=== PATIENT | female | born 1960 | race Caucasian/White ===

== ENCOUNTER → 2016-09-29 | Outpatient (CLI) | payer BC ==
--- NOTE | 2016-10-02 08:41 | MM ---
Reason for exam: screening (asymptomatic). Last mammogram was performed 2 years and 2 months ago. History: Patient is postmenopausal and has history of endometrial cancer at age 37. Family history of breast cancer in grandmother at age 55. Took hormonal contraceptives for 4 years. Physical Findings: A clinical breast exam by your physician is recommended on an annual basis and results should be correlated with mammographic findings. MG 3D Screening Mammo W/Cad Bilateral CC and MLO view(s) were taken. Prior study comparison: July 20, 2014, right breast MG work up mamm w CAD RT. July 10, 2014, bilateral MG screening mammo w CAD. There are scattered fibroglandular densities. There is chronic nodularity in the left breast. No significant changes when compared with prior studies. ASSESSMENT: Benign, BI-RAD 2 RECOMMENDATION: Routine screening mammogram of both breasts in 1 year.
== END | disposition home or self-care (01) ==
LOC: RADMAMWWP 08:48
PROVIDERS: ATTEND Obstetrics & Gynecology
DX: Z12.31 Encounter for screening mammogram for malignant neoplasm of breast (principal)
CPT/HCPCS: 77063; G0202

== ENCOUNTER 2016-11-22 10:07 | Day surgery (SDC) | payer BC ==
--- NOTE | 2016-11-22 07:38 | P.GSHP ---
History of Present Illness H&P Date: 11/22/16 CHIEF COMPLAINT: Colon screen HISTORY OF PRESENT ILLNESS: The patient is a 56-year-old female who presents for colon screen. Lower endoscopy was offered for further evaluation and management. PAST MEDICAL HISTORY: Please see list. PAST SURGICAL HISTORY: Please see list. MEDICATIONS: Please see list. ALLERGIES: Please see list. SOCIAL HISTORY: No illicit drug use FAMILY HISTORY: No reports of Crohn disease or ulcerative colitis. REVIEW OF ORGAN SYSTEMS: CONSTITUTIONAL: No reports of fevers or chills. PHYSICAL EXAM: VITAL SIGNS: Stable GENERAL: Well-developed pleasant in no acute distress. HEENT: No scleral icterus. Extraocular movements grossly intact. Moist buccal mucosa. NECK: Supple without lymphadenopathy. CHEST: Unlabored respirations. Equal bilateral excursions. CARDIOVASCULAR: Regular rate and rhythm. Distal 2+ pulses. ABDOMEN: Soft, nontender, nondistended. MUSCULOSKELETAL: No clubbing, cyanosis, or edema. ASSESSMENT: 1. Colon screen. PLAN: 1. Recommend proceeding with a lower endoscopy
[2016-11-22 10:32] VITALS: TEMP 98
[2016-11-22] MEDS ORDERED: LACTATED RINGERS 1,000 ML IV ONE (10:40)
[2016-11-22] MEDS ORDERED: LIDOCAINE 1% 20 ML VIAL (10MG/ML) FOR IV START INTRADERMA ONE (10:40)
[2016-11-22] MEDS ORDERED: PROPOFOL 10 MG/ML 20 ML VIAL IV ONE (10:58)
[2016-11-22] MEDS ORDERED: MIDAZOLAM 2 MG/2 ML VIAL ONE (10:58)
--- NOTE | 2016-11-22 11:53 | P.PCN ---
Date of Procedure: 11/22/16 Preoperative Diagnosis: Postoperative Diagnosis: Procedure(s) Performed: Implants: Indications for Procedure: Operative Findings: Description of Procedure: PREOPERATIVE DIAGNOSIS: Colonoscopy screening, initial. Family history of colon polyps, father. POSTOPERATIVE DIAGNOSIS: Colonoscopy screening, initial. Family history of colon polyps, father. Diverticulosis, scattered. Perianal lesion. External hemorrhoids, grade 4. OPERATION: Colonoscopy to the ileocecal valve and appendiceal orifice. SURGEON: Velia Arredondo MD. ANESTHESIA: MAC. INDICATIONS: The patient is a 56-year-old female who presents for colonoscopy screening. Benefits and risks were described and informed consent was obtained. DESCRIPTION OF PROCEDURE: The patient had undergone Gatorade, MiraLAX and Dulcolax prep. She had been brought into the operating room and laid in the left lateral decubitus position. After adequate intravenous sedation, the rectum was examined with 2% lidocaine jelly. Hyperemia along the perianal region including thickened squamous tissue was found. External hemorrhoids were encountered. The rectal tone was within normal limits. No lesions were palpated in the rectal vault. An Olympus colonoscope was advanced until the ileocecal valve and appendiceal orifice were clearly viewed. The colon was moderately redundant including of the sigmoid colon where abdominal pressure was required. The patient was repositioned supine to advance the scope. The prep was excellent with clear visualization of the mucosal folds. The scope was removed with visualization of each mucosal fold. Scattered diverticulosis was encountered. No large colonic polyps were found. No evidence of focal colitis was found. Retroflexion of the scope demonstrated grade 1 internal hemorrhoids without active bleeding or inflammation. The colon was desufflated. The patient had tolerated the procedure well. Withdrawal time was over 6 minutes. FINDINGS: Internal hemorrhoids, grade 1. External prolapsed hemorrhoids, grade 4. No arteriovenous malformations. No large adenomatous polyps. No focal colitis. Fidelina-anal lesion with thickened squamous tissue. RECOMMENDATIONS: Lower endoscopy in 3 years (2019) for high family and personal risks. Plan - Discharge Summary New Discharge Prescriptions: No Action Ranitidine HCl [Zantac] 150 PO DAILY Cetirizine HCl [Zyrtec] 5 mg PO DAILY Pseudoephedrine [Sudafed] 30 mg PO Q6H Fluticasone Nasal [place] [Flonase Nasal [place]] 1 spray EA NOSTRIL DAILY Vitamin E (Dl,Tocopheryl Acet) [Vitamin E] 400 unit PO DAILY Vit D3/Folic Acid/B2/B6/B12 [Folgard Tablet] 1 each PO DAILY Biotin 5,000 mcg PO DAILY Discharge Medication List Biotin 5,000 mcg PO DAILY 11/22/16 [History] Cetirizine HCl [Zyrtec] 5 mg PO DAILY 11/22/16 [History] Fluticasone Nasal [place] [Flonase Nasal [place]] 1 spray EA NOSTRIL DAILY 11/22/16 [History] Pseudoephedrine [Sudafed] 30 mg PO Q6H 11/22/16 [History] Ranitidine HCl [Zantac] 150 PO DAILY 11/22/16 [History] Vit D3/Folic Acid/B2/B6/B12 [Folgard Tablet] 1 each PO DAILY 11/22/16 [History] Vitamin E (Dl,Tocopheryl Acet) [Vitamin E] 400 unit PO DAILY 11/22/16 [History] Follow up Appointment(s)/Referral(s): Velia Arredondo MD [STAFF PHYSICIAN] - 11/28/16 () Patient Instructions/Handouts: Hemorrhoids (GEN), Colorectal Polyps (DC) Activity/Diet/Wound Care/Special Instructions: Follow-up in the office. Colonoscopy in 3 years, 2019. Discharge Disposition: HOME SELF-CARE
[2016-11-22 12:56] VITALS: BP 138/90; PULSE 60; RESP 18
== END 2016-11-22 12:51 | disposition home or self-care (01) ==
LOC: ORWHC2ENDO 10:07
PROVIDERS: ATTEND Surgery Plastic and Reconstructive Surgery
DX: Z12.11 Encounter for screening for malignant neoplasm of colon (principal); K57.30 Diverticulosis of large intestine without perforation or abscess without bleeding; K64.3 Fourth degree hemorrhoids; K64.0 First degree hemorrhoids; K62.9 Disease of anus and rectum, unspecified; Z83.71 Family history of colonic polyps; K21.9 Gastro-esophageal reflux disease without esophagitis; Z79.51 Long term (current) use of inhaled steroids; Z79.899 Other long term (current) drug therapy; Z88.5 Allergy status to narcotic agent
CPT/HCPCS: J2250; J2704; G0105; 45378

== ENCOUNTER 2016-11-29 10:33 | Day surgery (SDC) | payer BC ==
[2016-11-28 11:40] VITALS: BMI 28.7
--- NOTE | 2016-11-29 10:10 | P.GSHP ---
History of Present Illness H&P Date: 11/29/16 CHIEF COMPLAINT: Symptomatic hemorrhoids and rectal bleeding HISTORY OF PRESENT ILLNESS: The patient is a 56-year-old female who presents with symptomatic hemorrhoids and rectal bleeding. She completed a lower endoscopy with findings of dysplasia along the perineum. She has personal history of squamous cell cancer. She now presents for definitive surgical intervention. PAST MEDICAL HISTORY: Please see list. PAST SURGICAL HISTORY: Please see list. MEDICATIONS: Please see list. ALLERGIES: Please see list. SOCIAL HISTORY: No illicit drug use FAMILY HISTORY: No reports of Crohn disease or ulcerative colitis. REVIEW OF ORGAN SYSTEMS: CONSTITUTIONAL: No reports of fevers or chills. PHYSICAL EXAM: VITAL SIGNS: Stable GENERAL: Well-developed pleasant in no acute distress. HEENT: No scleral icterus. Extraocular movements grossly intact. Moist buccal mucosa. NECK: Supple without lymphadenopathy. CHEST: Unlabored respirations. Equal bilateral excursions. CARDIOVASCULAR: Regular rate and rhythm. Distal 2+ pulses. ABDOMEN: Soft, nontender, nondistended. MUSCULOSKELETAL: No clubbing, cyanosis, or edema. RECTUM: Grade 3 external hemorrhoids with desquamation along the anal canal and perineum. ASSESSMENT: 1. Symptomatic hemorrhoids, grade 3. 2. Dysplastic changes along the perineum. 3. Personal history of squamous cell cancer PLAN: 1. Recommend proceeding hemorrhoidectomy including anal skin biopsy. Past Medical History Past Medical History: Cancer, GERD/Reflux Additional Past Medical History / Comment(s): HEMORRHOIDS History of Any Multi-Drug Resistant Organisms: None Reported Past Surgical History: Back Surgery, Section, Hysterectomy Additional Past Surgical History / Comment(s): SQUAMOUS CELL REMOVED FROM RT GROIN 2014. BAXK SX X 2-HAS TITANIUM CAGE TO LOWER BACK. COLONOSCOPY-11/22/16 Past Anesthesia/Blood Transfusion Reactions: Motion Sickness, Postoperative Nausea & Vomiting (PONV) Smoking Status: Never smoker - Past Family History Mother Family Medical History: No Reported History Medications and Allergies Home Medications Medication Instructions Recorded Confirmed Type Biotin 5,000 mcg PO DAILY 11/22/16 11/28/16 History Cetirizine HCl [Zyrtec] 5 mg PO DAILY 11/22/16 11/28/16 History Fluticasone Nasal [place] [Flonase 1 spray EA NOSTRIL DAILY 11/22/16 11/28/16 History Nasal [place]] Pseudoephedrine [Sudafed] 30 mg PO Q6H 11/22/16 11/28/16 History Ranitidine HCl [Zantac] 150 mg PO DAILY PRN 11/22/16 11/28/16 History Vit D3/Folic Acid/B2/B6/B12 1 each PO DAILY 11/22/16 11/28/16 History [Folgard Tablet] Vitamin E (Dl,Tocopheryl Acet) 400 unit PO DAILY 11/22/16 11/28/16 History [Vitamin E] Allergies Allergy/AdvReac Type Severity Reaction Status Date / Time morphine Allergy Itching Verified 11/28/16 11:31
[~2016-11-29 10:33] MED LIST: BUPIVACAINE LIPOSOME/PF 1.3% 20 ML, SODIUM CHLORIDE 0.9% 10 ML MISCELLANE ONE; DEXAMETHASONE SOD PHOSPHATE 10 MG/ML 1 ML VIAL IV ONE; LIDOCAINE 1% 20 ML VIAL (10MG/ML) FOR IV START INTRADERMA PRN; ONDANSETRON 4 MG/2 ML VIAL IVP ONE; Pre Op ABX Message 1 EACH MISC MISCELLANE ONE; SCOPOLAMINE 1.5MG/72HR PATCH TRANSDERM ONE; ceFAZolin 2 GM in SODIUM CHLORIDE 0.9% 100 ML IVPB ONE; fentaNYL (PF) 50 MCG/ML 2 ML AMP IV PRN; metroNIDAZOLE-NS PMX 500 MG in SALINE 100 100ML.BAG IVPB ONE
[2016-11-29] MEDS: LACTATED RINGERS 1,000 ML IV SCH ×2 (11:15→13:41)
[2016-11-29] MEDS ORDERED: NA PHOS,M-B/NA PHOS,DI-BA 133 ML ENEMA RECTAL ONE (11:18)
[2016-11-29 11:24] LABS: Basophils % (A) 1 %; CHCM 33.7; Eosinophils # (A) 0.2 k/uL (0-0.7); Eosinophils % (A) 3 %; HCT 42.5 % (34.0-46.0); HDW 2.57; HGB 14.5 gm/dL (11.4-16.0); Luc # (Auto) 0.09; Luc % (Auto) 2; Lymphocytes # (A) 2.2 k/uL (1.0-4.8); Lymphocytes % (A) 39 %; MCH 32.5 pg (25.0-35.0); MCV 95.5 fL (80.0-100.0); Mean Platelet Volume 7.4; Monocytes # (A) 0.3 k/uL (0-1.0); Monocytes % (A) 5 %; Neutrophils # (A) 2.9 k/uL (1.3-7.7); Neutrophils % (A) 51 %; RBC 4.45 m/uL (3.80-5.40); RDW 12.7 % (11.5-15.5); WBC 5.7 k/uL (3.8-10.6)
[2016-11-29] MEDS ORDERED: fentaNYL (PF) 50 MCG/ML 2 ML AMP ONE (11:55)
[2016-11-29] MEDS ORDERED: LIDOCAINE 1% INJ 10MG/ML (20 ML MDV) ONE (11:55)
[2016-11-29] MEDS ORDERED: PROPOFOL 10 MG/ML 20 ML VIAL IV ONE (11:55)
[2016-11-29] MEDS ORDERED: MIDAZOLAM 2 MG/2 ML VIAL ONE (11:55)
[2016-11-29] MEDS ORDERED: SUCCINYLCHOLINE CHLORIDE 100 MG/5 ML SYR IV ONE (11:55)
[2016-11-29 12:44] VITALS: TEMP 96.8
[2016-11-29] MEDS ORDERED: HYDROmorphone 1 MG/ML 1 ML SYRINGE IVP ONE ×2 (13:17→13:24)
[2016-11-29 13:19] VITALS: RESP 16
[2016-11-29] MEDS ORDERED: HYDROcodone/APAP 5-325MG 1 EACH TAB PO ONE (14:10)
[2016-11-29 14:58] VITALS: BP 150/92; PULSE 67
--- NOTE | 2016-11-30 08:03 | P.OP ---
Date of Procedure: 11/29/16 Preoperative Diagnosis: Postoperative Diagnosis: Procedure(s) Performed: Implants: Indications for Procedure: Operative Findings: Description of Procedure: SURGEON: VELIA ARREDONDO MD RAIL SPLITTER: NONE. PREOPERATIVE DIAGNOSES: 1. History of complicated internal hemorrhoids, grade 3. 2. History of complicated external hemorrhoids, grade 3. 3. Personal history of squamous cell cancer. 4. Perianal lesion. 5. History of rectal bleeding. POSTOPERATIVE DIAGNOSES: 1. History of complicated internal hemorrhoids, grade 4. 2. History of complicated external hemorrhoids, grade 4. 3. Personal history of squamous cell cancer. 4. Perianal lesion. 5. History of rectal bleeding. OPERATION: 1. Excision of internal and external hemorrhoids x 3 using LigaSure. 2. Skin biopsy perianal lesion ANESTHESIA: MAC with Exparel mixture. ESTIMATED BLOOD LOSS: 1 mL. PATHOLOGY: 1. Internal, external hemorrhoidal complex x 3. 2. Perianal lesion skin lesion at 11:00. FINDINGS: 1. Grade 4 internal/external hemorrhoidal cushion 3 excised. 2. Severe inflammation along the perianal region highly suspicious for squamous cell dysplasia/cancer. 3. No anal stricture upon excision of hemorrhoidal complexes. INDICATIONS: The patient is a 56-year-old female who presents with rectal bleeding including complicated internal/external hemorrhoids. She completed a colonoscopy with findings of perianal lesion highly suspicious for dysplastic changes. She has a personal history of squamous cell cancer. Surgical intervention was described for hemorrhoidectomy including biopsy of the perianal lesion. Benefits and risks of the procedure, including bleeding, infection, incontinence, recurrent pain and recurrence of the hemorrhoids were discussed in detail. Informed consent was obtained. DESCRIPTION: Patient was brought to the operating room. The patient was prepared and draped in the standard sterile fashion. After general induction, she was then repositioned the prone jackknife position. Next, the perineum and buttocks was spread apart using Mastisol. The perineum was then prepped and draped in standard sterile fashion using Betadine. Preoperative medication was confirmed. Prior to incision, a timeout protocol was confirmed with surgical team. Initially 2 fingers was easily inserted for dilation of the anus. A perineal block using Exparel was placed. Grade 4 hemorrhoids along all 3 quadrants were identified. Next, using a Alfie-Ming anoscope, each hemorrhoidal cushion was addressed using a hand-held LigaSure after elevating each hemorrhoidal complex using forceps. Next, at the 11 o'clock position a #15 blade was used to excise a skin biopsy of 1 cm x 0.3 cm involving the area of dysplasia as well as normal skin tissue. The excision was cauterized and oversewn using 3-0 Vicryl. At the end of the case, 2 fingers were readily passed through the anus without any features of the anal stricture or stenosis. The perineum was cleansed. Several 4 x 4 gauze with mesh underwear was placed. At the end of the procedure, needle, sponge, and counts had been verified correct by the surgical services director. The patient then had tolerated the procedure well. Intraoperative findings including postoperative care instructions were discussed. Plan - Discharge Summary New Discharge Prescriptions: New Docusate [Colace] 100 mg PO DAILY #10 capsule Hydrocodone/Acetaminophen [[place] 5-325] 1 each PO Q6HR PRN #20 tab PRN Reason: Pain metroNIDAZOLE [Flagyl] 500 mg PO BID #10 tab No Action Ranitidine HCl [Zantac] 150 mg PO DAILY PRN PRN Reason: GERD Cetirizine HCl [Zyrtec] 5 mg PO DAILY Pseudoephedrine [Sudafed] 30 mg PO Q6H Fluticasone Nasal [place] [Flonase Nasal [place]] 1 spray EA NOSTRIL DAILY Vitamin E (Dl,Tocopheryl Acet) [Vitamin E] 400 unit PO DAILY Biotin 5,000 mcg PO DAILY Discharge Medication List Biotin 5,000 mcg PO DAILY 11/22/16 [History] Cetirizine HCl [Zyrtec] 5 mg PO DAILY 11/22/16 [History] Fluticasone Nasal [place] [Flonase Nasal [place]] 1 spray EA NOSTRIL DAILY 11/22/16 [History] Pseudoephedrine [Sudafed] 30 mg PO Q6H 11/22/16 [History] Ranitidine HCl [Zantac] 150 mg PO DAILY PRN 11/22/16 [History] Vitamin E (Dl,Tocopheryl Acet) [Vitamin E] 400 unit PO DAILY 11/22/16 [History] Docusate [Colace] 100 mg PO DAILY #10 capsule 11/29/16 [Rx] Hydrocodone/Acetaminophen [[place] 5-325] 1 each PO Q6HR PRN #20 tab 11/29/16 [Rx] metroNIDAZOLE [Flagyl] 500 mg PO BID #10 tab 11/29/16 [Rx] Follow up Appointment(s)/Referral(s): Velia Arredondo MD [STAFF PHYSICIAN] - 12/12/16 1:30 pm Patient Instructions/Handouts: *Surgery [facility] - (Anesthesia) Discharge Instructions Outpatient Surgery, Hydrocodone/Acetaminophen (By mouth), Metronidazole (By mouth), Sitz Bath (GEN), Hemorrhoidectomy (GEN) Activity/Diet/Wound Care/Special Instructions: Please do sitz bath twice daily and after bowel movement. Stop stool softener should you develop diarrhea. It is okay to see blood after your first bowel movement. Keep the area clean and dry. May wear a pad to protect your clothing. Discharge Disposition: HOME SELF-CARE
== END 2016-11-29 15:11 | disposition home or self-care (01) ==
LOC: OR 10:33
PROVIDERS: ATTEND Surgery Plastic and Reconstructive Surgery
DX: K64.2 Third degree hemorrhoids (principal); D04.5 Carcinoma in situ of skin of trunk; Z87.19 Personal history of other diseases of the digestive system; Z85.9 Personal history of malignant neoplasm, unspecified; K21.9 Gastro-esophageal reflux disease without esophagitis; Z79.899 Other long term (current) drug therapy; Z88.5 Allergy status to narcotic agent
CPT/HCPCS: 88304; 88305; 85025; 46260; 46922; J2250; J1100; J0690; J2405; J2001; J3010; J1170; J0330; C9290; J2704; 88341; 88342

== ENCOUNTER → 2016-12-26 | Outpatient (CLI) | payer BC ==
[2016-12-26 18:35] LABS: Basophils # (A) 0.1 k/uL (0-0.2); Basophils % (A) 1 %; CH 32.9; CHCM 33.6; Eosinophils # (A) 0.2 k/uL (0-0.7); Eosinophils % (A) 4 %; HCT 40.6 % (34.0-46.0); HDW 2.49; HGB 13.2 gm/dL (11.4-16.0); Luc # (Auto) 0.12; Luc % (Auto) 2; Lymphocytes # (A) 3.2 k/uL (1.0-4.8); Lymphocytes % (A) 48 %; MCH 32.1 pg (25.0-35.0); MCHC 32.6 g/dL (31.0-37.0); MCV 98.3 fL (80.0-100.0); Mean Platelet Volume 7.6; Monocytes # (A) 0.4 k/uL (0-1.0); Monocytes % (A) 5 %; Neutrophils # (A) 2.8 k/uL (1.3-7.7); Neutrophils % (A) 41 %; RBC 4.13 m/uL (3.80-5.40); RDW 13.1 % (11.5-15.5); WBC 6.7 k/uL (3.8-10.6); WBC (Perox) 6.95
== END | disposition home or self-care (01) ==
LOC: RADXRMAIN 17:43
PROVIDERS: ATTEND Surgery Plastic and Reconstructive Surgery
DX: T81.4XXA Infection following a procedure, initial encounter (principal)
CPT/HCPCS: 36415; 85025

== ENCOUNTER → 2018-04-13 | Outpatient (CLI) | payer BC ==
--- NOTE | 2018-04-17 14:10 | PE ---
EXAMINATION TYPE: PET CT fusion skull to thigh DATE OF EXAM: 04/13/2018 COMPARISON: None available at this institution. HISTORY: Rectal carcinoma. Subsequent treatment strategy. Patient describes surgical resection in 201 7 without chemotherapy or radiation. TECHNIQUE: Following the intravenous administration of 12.86 mCi of F-18 FDG, whole body images are performed from the skull base to the midthigh. Images are reviewed on the computer in the coronal, a xial, and sagittal planes. Reconstructed rotating images are created on independent workstation and reviewed on the computer. A localization and attenuation correction CT is performed in conjunction with the PET scan. SCAN: Initial at this institution FINDINGS: Background mediastinal uptake: 1.2 Background abdominal uptake: 2.37 SKULL BASE AND NECK: No suspicious hypermetabolic uptake. CHEST, MEDIASTINUM, AND HILAR REGION: No suspicious hypermetabolic uptake. ABDOMEN AND PELVIS: There is uptake within the rectum extending to the anal verge with a maximum SUV of 3.05, mildly above abdominal background. There is a hypoattenuated hepatic lesion with no hypermetabolic uptake in the left hepatic lobe. OSSEOUS STRUCTURES: No suspicious abnormal metabolic uptake. OTHER CT: There is mild circumferential mucosal thickening within the right maxillary sinus. Remainin g paranasal sinuses and mastoid air vessels appear well aerated. Mild degenerative changes of the spi ne are seen. Vague geographic groundglass opacities throughout the lungs are present with minimal bibasilar depend ent atelectasis. No suspicious pulmonary mass is seen. The heart is mildly enlarged. As above there is a hypoattenuated hepatic lesion without hypermetabolic uptake measuring 1.3 cm and left hepatic lobe on series 3 image 119. However this does not measure Hounsfield unit of a simple cy st on all images. This could relate to volume averaging. Ultrasound could confirm increased through t ransmission. Small splenule is noted adjacent to the [place] spleen. Unenhanced kidneys, pancreas, and adrenal glan ds are unremarkable. Gallbladder demonstrates no evidence of cholelithiasis. Small fat filled umbilic al hernia is noted. No dilated large or small bowel is seen. Moderate amount retained colonic stool i s present. No greater than 1 cm short axis lymph nodes are seen within the abdomen or pelvis. Postsur gical changes are present of the lumbosacral spine. Rectal wall thickening at the rectosigmoid junction is nearly circumferential measuring up to 6 mm in greatest thickness. There is minimal amount of subtle fat stranding in the mesorectal fat. A solitar y 5 mm lymph node within the right mesorectal fat seen on series 3 image 208 is suspicious given its location however remains nonenlarged and is not hypermetabolic. Few scattered nonenlarged internal an d external iliac chain lymph nodes are seen. IMPRESSION: 1. There is mild hypermetabolic uptake within the rectum extending to the anal verge with circumferen tial mild mucosal thickening. An adjacent nonenlarged mesorectal lymph node is present without hyperm etabolic uptake, possibly treated metastasis. No other suspicious findings for metastasis are seen wi thin the chest, abdomen or pelvis. 2. Solitary left hepatic lobe lesion does not demonstrate FDG avidity, however this does not measure Hounsfield units of a simple cyst throughout and comparison with any prior outside imaging to determi ne stability would be recommended. If no prior imaging is available ultrasound could asses for increa sed through transmission of a cyst.
== END | disposition home or self-care (01) ==
LOC: RADPETMAIN 08:39
PROVIDERS: ATTEND Internal Medicine Hematology & Oncology
DX: K76.9 Liver disease, unspecified (principal); C20 Malignant neoplasm of rectum; C21.1 Malignant neoplasm of anal canal
CPT/HCPCS: 78815; A9552

== ENCOUNTER → 2018-07-22 | Outpatient (CLI) | payer BC ==
--- NOTE | 2018-07-23 13:43 | MM ---
Reason for exam: screening (asymptomatic). Last mammogram was performed 1 year and 10 months ago. History: Patient is postmenopausal and has history of endometrial cancer at age 37. Family history of breast cancer in grandmother at age 55. Took hormonal contraceptives for 4 years. Physical Findings: A clinical breast exam by your physician is recommended on an annual basis and results should be correlated with mammographic findings. MG 3D Screening Mammo W/Cad Bilateral CC and MLO view(s) were taken. Prior study comparison: September 29, 2016, bilateral MG 3d screening mammo w/cad. July 20, 2014, right breast MG work up mamm w CAD RT. The breast tissue is heterogeneously dense. This may lower the sensitivity of mammography. Finding: There is a stable 7 mm mass in the upper outer quadrant of the left breast. There are benign appearing calcifications. ASSESSMENT: Benign, BI-RAD 2 RECOMMENDATION: Routine screening mammogram of both breasts in 1 year.
== END | disposition home or self-care (01) ==
LOC: RADMAMWWP 15:30
PROVIDERS: ATTEND Obstetrics & Gynecology
DX: Z12.31 Encounter for screening mammogram for malignant neoplasm of breast (principal); Z80.3 Family history of malignant neoplasm of breast
CPT/HCPCS: 77063; 77067

== ENCOUNTER → 2019-11-21 | Outpatient (CLI) | payer OTHER ==
--- NOTE | 2019-11-24 08:46 | MM ---
Reason for exam: screening (asymptomatic). Last mammogram was performed 1 year and 4 months ago. History: Patient is postmenopausal and has history of endometrial cancer at age 37. Family history of breast cancer in grandmother at age 55. Took hormonal contraceptives for 4 years. Physical Findings: A clinical breast exam by your physician is recommended on an annual basis and results should be correlated with mammographic findings. MG 3D Screening Mammo W/Cad Bilateral CC and MLO view(s) were taken. Prior study comparison: July 22, 2018, bilateral MG 3d screening mammo w/cad. September 29, 2016, bilateral MG 3d screening mammo w/cad. There are scattered fibroglandular densities. There is no discrete abnormality. No significant changes when compared with prior studies. ASSESSMENT: Negative, BI-RAD 1 RECOMMENDATION: Routine screening mammogram of both breasts in 1 year.
== END | disposition home or self-care (01) ==
LOC: RADMAMWWP 08:42
PROVIDERS: ATTEND Obstetrics & Gynecology
DX: Z12.31 Encounter for screening mammogram for malignant neoplasm of breast (principal)
CPT/HCPCS: 77063; 77067

== ENCOUNTER → 2021-05-03 | Outpatient (CLI) | payer OTHER ==
--- NOTE | 2021-05-04 13:55 | MM ---
Reason for exam: screening (asymptomatic). Last mammogram was performed 1 year and 5 months ago. History: Patient is postmenopausal and has history of endometrial cancer at age 37. Family history of breast cancer in grandmother at age 55. Took hormonal contraceptives for 4 years. Physical Findings: A clinical breast exam by your physician is recommended on an annual basis and results should be correlated with mammographic findings. MG 3D Screening Mammo W/Cad Bilateral CC and MLO view(s) were taken. XCCL view(s) were taken of the right breast. Prior study comparison: November 21, 2019, bilateral MG 3d screening mammo w/cad. July 22, 2018, bilateral MG 3d screening mammo w/cad. The breast tissue is heterogeneously dense. This may lower the sensitivity of mammography. Benign calcifications. No significant changes when compared with prior studies. ASSESSMENT: Benign, BI-RAD 2 RECOMMENDATION: Routine screening mammogram of both breasts in 1 year.
== END | disposition home or self-care (01) ==
LOC: RADMAMWWP 07:09
PROVIDERS: ATTEND Obstetrics & Gynecology
DX: Z12.31 Encounter for screening mammogram for malignant neoplasm of breast (principal); Z78.0 Asymptomatic menopausal state; Z80.3 Family history of malignant neoplasm of breast
CPT/HCPCS: 77063; 77067

== ENCOUNTER → 2022-01-20 | Outpatient (CLI) | payer BC ==
--- NOTE | 2022-01-20 11:18 | BD ---
EXAMINATION TYPE: Axial Bone Density DATE OF EXAM: 01/20/2022 COMPARISON: 11-05-2012 CLINICAL HISTORY: 61 years year old Female. ICD-10 CODE: N95.1 POST MENOPAUSAL SYMPTOMS Height: 63IN Weight: 167 FRAX RISK QUESTIONS: Glucocorticoids (More than 3mos): YES ABOUT 5 YEARS AGO FOR BACK PAIN (Ex: prednisone, prednisolone, methylprednisolone, dexamethasone, and hydrocortisone). History of Fracture in Adulthood: YES Secondary Osteoporosis: 3. Menopause before 45: YES HYSTERECTOMY AT 33 RISK FACTORS HISTORY OF: Surgery to Spine): YES LUMBAR When: 2001 Diet low in dairy products/other sources of calcium: YES Postmenopausal woman: YES MEDICATIONS: Prednisone or other steroids: YES, NONE CURRENT How Long: ABOUT 5-6 YEARS Additional Medications: VITAMIN D, PRILOSEC Additional History: RIB FX EXAM MEASUREMENTS: Bone mineral densitometry was performed using the [employer] System. Bone mineral density about the R hip (g/cm2): 0.905 Bone mineral density about the L hip (g/cm2): 0.937 T Score values are as follows: -----R Neck: -1.2 -----L Neck: -1.2 -----R Total: -0.8 -----L Total: -0.6 Bone mineral density has: Decreased -12.1% since study of: 11-05-2012 Bone mineral density about the L Wrist (g/cm2): T Score values are as follows: -----Dist. R+U: -1.5 -----Prox. R+U: -1.2 -----Radius total: -1.6 FRAX%s: The graph provided illustrates a 12.4% chance for a major osteoporotic fx and a 0.9% chance f or the hips probability for fx in 10 years time. IMPRESSION: Osteopenia (T Score between -2.5 and -1). There is slightly increased risk of fracture and the patient may be considered for treatment. Re-Screen 2-5 years. NOTE: T-SCORE=SD OF THE YOUNG ADULT MEAN.
== END | disposition home or self-care (01) ==
LOC: RADBDWWP 08:56
PROVIDERS: ATTEND Obstetrics & Gynecology
DX: M85.89 Other specified disorders of bone density and structure, multiple sites (principal); Z78.0 Asymptomatic menopausal state
CPT/HCPCS: 77080

== ENCOUNTER → 2022-05-31 | Outpatient (CLI) | payer BC ==
--- NOTE | 2022-06-01 10:05 | MM ---
Reason for Exam: Screening (asymptomatic). Last mammogram was performed 1 year(s) and 1 month(s) ago. Patient History: Menarche at age 15. First Full-Term at age 28. Hysterectomy at age 37. Postmenopausal. Patient used Hormonal Contraceptives for 4 years. Maternal grandmother had breast cancer, age 55. Risk Values: [place] 5 year model risk: 1.6%. NCI Lifetime model risk: 8.1%. Prior Study Comparison: 07/22/2018 Bilateral Screening Mammogram, [facility]. 11/21/2019 Bilateral Screening Mammogram, [facility]. 05/03/2021 Bilateral Screening Mammogram, [facility]. Tissue Density: The breast tissue is heterogeneously dense. This may lower the sensitivity of mammography. Findings: Analyzed By CAD. There is no suspicious group of microcalcifications or new suspicious mass in either breast. Overall Assessment: Negative, BI-RAD 1 Management: Screening Mammogram of both breasts in 1 year. A clinical breast exam by your physician is recommended on an annual basis and results should be correlated with mammographic findings. [facility] will attempt to contact patient to return for supplemental views and ultrasound if indicated. Electronically signed and approved by: Kurt Miller DO
== END | disposition home or self-care (01) ==
LOC: RADMAMWWP 09:27
PROVIDERS: ATTEND Obstetrics & Gynecology
DX: Z12.31 Encounter for screening mammogram for malignant neoplasm of breast (principal); Z78.0 Asymptomatic menopausal state; Z80.3 Family history of malignant neoplasm of breast
CPT/HCPCS: 77063; 77067

== ENCOUNTER → 2023-06-04 | Outpatient (CLI) | payer BC ==
--- NOTE | 2023-06-05 15:58 | MM ---
Reason for Exam: Screening (asymptomatic). Last screening mammogram was performed 12 month(s) ago. Patient History: Menarche at age 15. First Full-Term at age 28. Hysterectomy at age 37. Postmenopausal. Patient used Hormonal Contraceptives for 4 years. Maternal grandmother had breast cancer, age 55. Risk Values: Victorina 5 year model risk: 1.6%. NCI Lifetime model risk: 7.9%. Prior Study Comparison: 11/21/2019 Bilateral Screening Mammogram, [facility]. 05/03/2021 Bilateral Screening Mammogram, [facility]. 05/31/2022 Bilateral MG 3D screening mammo w/cad, [facility]. Tissue Density: There are scattered fibroglandular densities. Findings: Analyzed By CAD. Unchanged areas of asymmetric densities. There is no suspicious group of microcalcifications or new suspicious mass in either breast. Overall Assessment: Benign, BI-RAD 2 Management: Screening Mammogram of both breasts in 1 year. . Patient should continue monthly self-breast exams. A clinical breast exam by your physician is recommended on an annual basis. This exam should not preclude additional follow-up of suspicious palpable abnormalities. Note on Victorina scores and lifetime risk: 1. A Victorina score greater than 3% is considered moderate risk. If this is the case, consider specialist referral to assess eligibility for a risk reducing agent. 2. If overall lifetime risk for the development of breast cancer is 20% or higher, the patient may qualify for future screening with alternating mammogram and breast MRI. Electronically signed and approved by: Hakeem Starks M.D. Radiologist
== END | disposition home or self-care (01) ==
LOC: RADMAMWWP 11:27
PROVIDERS: ATTEND Obstetrics & Gynecology
DX: Z12.31 Encounter for screening mammogram for malignant neoplasm of breast (principal); Z90.710 Acquired absence of both cervix and uterus; Z78.0 Asymptomatic menopausal state; Z92.0 Personal history of contraception; Z80.3 Family history of malignant neoplasm of breast
CPT/HCPCS: 77063; 77067